=== PATIENT | female | born 1990 | race Two or more races ===

== ENCOUNTER 2021-02-05 21:51 | Emergency (ER) | payer MEDICAID, OTHER ==
[~2021-02-05] VITALS: Ht 154.9 cm; Wt 63.5 kg
[2021-02-06 01:00] VITALS: BP 118/70
== END 2021-02-06 01:45 | disposition home or self-care (01) ==
LOC: ER 21:53
DX: L03.316 Cellulitis of umbilicus (principal); L53.9 Erythematous condition, unspecified; R60.9 Edema, unspecified
CPT/HCPCS: 74176